=== PATIENT | female | born 1985 | race Caucasian/White ===

== ENCOUNTER 2022-09-30 08:00 | Outpatient (CLI) | payer OTHER | END 2022-09-30 23:59 | disposition home or self-care (01) | LOC: LAB.S 08:00 | PROVIDERS: ATTEND Physician Assistant Medical | DX: R10.2 Pelvic and perineal pain (principal); Z87.59 Personal history of other complications of pregnancy, childbirth and the puerperium | CPT/HCPCS: 87086 ==